=== PATIENT | male | born 1950 | race Caucasian/White ===

== ENCOUNTER 2017-03-26 12:59 | Observation (INO) ==
[2017-03-26] MEDS ORDERED: Aspirin 81 MG TAB.CHEW PO ONE (13:22)
[2017-03-26] MEDS ORDERED: Nitroglycerin 0.4 MG TAB.SUBL SL ONE (13:29)
--- NOTE | 2017-03-26 13:32 | Emergency Department Note ---
Disposition Clinical Impression: Chest pain Qualifiers: Chest pain type: unspecified Qualified Code(s): R07.9 - Chest pain, unspecified Disposition: Admitted As Inpatient Condition: Fair Time of Disposition: 14:22 Chest Pain HPI - General Chief Complaint: ED Chest Pain Stated Complaint: CP x4days,randa x1 week Time Seen by Provider: 03/26/17 13:29 Source: patient Limitations: no limitations Vital Signs Reviewed: Yes Nursing Notes Reviewed: Yes - History of Present Illness HPI Narrative: 66-year-old male with history of CAD, past Was July 2015 presents with chest pain for 4 days. Chest pain at rest, causing nausea dizziness and shortness of breath. Patient states that he had pain 8 out of 10, crampy aching pain like pressure. Nonexertional. a few hours prior to arrival, at worse an 8 out of 10 in the last 4 days, sudden onset 4 days ago before that he had no pain. 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 Hernandez was also concerned that he may possibly have pericarditis from an odontogenic source, he sent him in and evaluated him a week ago. He reports shortness of breath. Patient denies productive cough, recent fevers or chills, denies vomiting, diarrhea, constipation, weight changes, hematuria, hemoptysis, hematochezia Pt complaint: chest pain Onset (ago): day(s) (4) Duration: intermittent Onset: during rest, during exertion Pain Location: substernal, left chest Severity: moderate Severity scale (1-10): 9 Quality: aching Improves with: nothing Worsens with: nothing Associated symptoms: Reports: nausea. Denies: vomiting, diaphoresis, dyspnea Treatments prior to arrival chest pain: none - Related Data Home Medications Medication Instructions Recorded Confirmed Aspirin [Adult Low Dose Aspirin EC] 81 mg PO DAILY 08/08/15 03/26/17 Atorvastatin [Lipitor] 40 mg PO HS 08/08/15 03/26/17 Cyanocobalamin (Vitamin B-12) 1,000 mcg SL DAILY 08/08/15 03/26/17 [Vitamin B-12] Docusate [Colace] 100 mg PO DAILY 08/08/15 03/26/17 Gabapentin [Neurontin] 100 mg PO TID 08/08/15 03/26/17 HYDROcodone/Acet 7.5/325 mg [[place] 1 tab PO TID 08/08/15 03/26/17 7.5-325 mg] Hydrocortisone [Cortef] 10 mg PO HS 08/08/15 03/26/17 Hydrocortisone [Cortef] 20 mg PO QAM 08/08/15 03/26/17 Magnesium 250 mg PO TID 08/08/15 03/26/17 Trazodone HCl [TraZODone] 50 mg PO HS 08/08/15 03/26/17 Vitamin E (Dl,Tocopheryl Acet) 400 unit PO DAILY 08/08/15 03/26/17 [Vitamin E] diazePAM [Valium] 5 mg PO BID 08/08/15 03/26/17 traMADol [Ultram] 50 mg PO Q4H 08/08/15 03/26/17 Azithromycin [Azithromycin 6-Tab 250 mg PO PER PKG DI 03/26/17 03/26/17 Pack] Metoprolol [Lopressor] 50 mg PO BID 03/26/17 03/26/17 Prazosin HCl [Minipress] 2 mg PO DAILY 03/26/17 03/26/17 Allergies Allergy/AdvReac Type Severity Reaction Status Date / Time glycerin AdvReac Hives Verified 08/08/15 06:50 phenol AdvReac Hives Verified 08/08/15 06:50 Sulfa (Sulfonamide AdvReac Nausea Verified 08/08/15 06:50 Antibiotics) All systems ED: reviewed and negative except as stated. Review of Systems: As Per HPI Constitutional: Denies: fever, chills ENT ED: Denies: ear pain Cardiovascular: Reports: as per HPI, chest pain, dyspnea on exertion. Denies: palpitations Respiratory: Denies: cough, dyspnea Gastrointestinal: Denies: abdominal pain, nausea, vomiting Genitourinary: Denies: urgency Musculoskeletal: Denies: back pain, neck pain Integumentary: Denies: rash Neurological: Denies: headache, weakness Psychiatric: Denies: anxiety Chest Pain PMH - Past Medical History Medical history: Reports: hyperlipidemia, hypertension, myocardial infarction Psychiatric history: Reports: anxiety, depression - Social History Smoking Status: Former smoker Alcohol use: Reports: none Drug use: Reports: none Physical Exam Constitutional: NAD, vital signs reviewed and wnl Eyes: PERRLA, sclera anicteric ENT & Mouth: dry MM, edentuluous, small area of induration to left lower mandibular gumline no abscess no uvular deviation Neck: normal inspection, neck is supple Resp: CTA bilaterally, no resp distress CV: RRR, no m/g/r GI: normal inspection, soft, no guarding or rigidity Back: normal inspection, no tenderness to palpation Neuro: A&O3, CNII-XII grossly intact, [place] Skin: on limited exam, skin intact with no rashes or lesions - General Limitations: no limitations General appearance: alert Course Course Narrative: 66-year-old male with history of urinary artery disease presents with chest pain nonexertional for last few days, concern for unstable angina versus angina EKG with no ischemic changes or troponin chest x-ray cardiac workup aspirin and nitroglycerin trial plan to admit to medicine heart score of 5 - Reevaluation(s) Reevaluation #1: Patient was evaluated in the ED, no troponin elevation, EKG with no ischemic changes, nonspecific repolarization, admitted to medicine service doctor capillary, and Toradol for pain as the patient states that it does not feel like NTG is helping anymore, he stated it helped at first not chest pain feels different. Vital Signs Temperature 98.6 F 03/26/17 13:02 Pulse Rate 63 03/26/17 13:02 Respiratory Rate 18 03/26/17 13:02 Blood Pressure 172/120 03/26/17 13:02 O2 Sat by Pulse Oximetry 96 03/26/17 13:02 Temperature 98.6 F 03/26/17 13:02 Pulse Rate 66 03/26/17 14:32 Respiratory Rate 15 03/26/17 15:20 Blood Pressure 132/88 03/26/17 15:20 O2 Sat by Pulse Oximetry 97 03/26/17 14:32 Oxygen Delivery Oxygen Delivery Room Air Chest Pain - [facility] Narrative Medical decision making narrative: 66-year-old male with chest pain history of CAD admitted to hospital service in stable condition. - Differential Diagnosis Likely: stable angina, unstable angina pectoris, atypical chest pain, chest pain - Medical Records Medical records reviewed: Yes I reviewed the patient's medical records. - Lab Data Lab results reviewed: Yes I reviewed the patient's lab results. Result diagrams: 03/26/17 13:39 03/26/17 13:39 Lab Results 03/26/17 03/26/17 03/26/17 Range/Units 13:39 13:39 13:39 WBC 6.7 (4.3-11.1) K/mcL RBC 4.25 (4.19-5.50) M/mcL Hgb 13.0 (12.9-16.9) g/dL Hct 37.8 (37.5-50.1) % MCV 88.9 (83.0-100.0) fL MCH 30.6 (28.0-33.3) pg MCHC 34.4 (31.6-35.5) g/dL RDW 12.5 (11.5-14.5) % Plt Count 160 (140-400) K/mcL MPV 9.9 (9.4-12.4) fL Immature Gran % 0.3 (0-4) % Seg Neutrophils % 79.8 % Lymphocytes % 13.6 % Monocytes % 4.6 % Eosinophils % 1.3 % Basophils % 0.4 % Neutrophils # 5.3 (1.6-8.9) K/mcL Lymphocytes # 0.9 (0.6-4.6) K/mcL Monocytes # 0.3 (0.0-1.3) K/mcL Eosinophils # 0.1 (0.0-0.6) K/mcL Basophils # 0.0 (0.0-0.2) K/mcL Sodium 141 (136-145) mEq/L Potassium 4.1 (3.5-4.5) mEq/L Chloride 108 (98-109) mEq/L Carbon Dioxide 26 (19-29) mEq/L BUN 15 (8-26) mg/dL Creatinine 0.97 (0.72-1.25) mg/dL Est GFR ( Amer) > 60 (> 60) Est GFR (Non-Af Amer) > 60 (> 60) BUN/Creatinine Ratio 15 (6-26) Glucose 122 H (70-99) mg/dL Calculated Osmolality 294 (280-300) Calcium 9.1 (8.6-10.8) mg/dL Troponin I (0-0.03) ng/mL B-Natriuretic Peptide 46 (0-100) pg/mL 03/26/17 Range/Units 13:39 WBC (4.3-11.1) K/mcL RBC (4.19-5.50) M/mcL Hgb (12.9-16.9) g/dL Hct (37.5-50.1) % MCV (83.0-100.0) fL MCH (28.0-33.3) pg MCHC (31.6-35.5) g/dL RDW (11.5-14.5) % Plt Count (140-400) K/mcL MPV (9.4-12.4) fL Immature Gran % (0-4) % Seg Neutrophils % % Lymphocytes % % Monocytes % % Eosinophils % % Basophils % % Neutrophils # (1.6-8.9) K/mcL Lymphocytes # (0.6-4.6) K/mcL Monocytes # (0.0-1.3) K/mcL Eosinophils # (0.0-0.6) K/mcL Basophils # (0.0-0.2) K/mcL Sodium (136-145) mEq/L Potassium (3.5-4.5) mEq/L Chloride (98-109) mEq/L Carbon Dioxide (19-29) mEq/L BUN (8-26) mg/dL Creatinine (0.72-1.25) mg/dL Est GFR ( Amer) (> 60) Est GFR (Non-Af Amer) (> 60) BUN/Creatinine Ratio (6-26) Glucose (70-99) mg/dL Calculated Osmolality (280-300) Calcium (8.6-10.8) mg/dL Troponin I 0.00 (0-0.03) ng/mL B-Natriuretic Peptide (0-100) pg/mL - Radiology Data Radiology results reviewed: Yes I reviewed the patient's radiology results. Chest X-Ray 03/26/17 13:22 IMPRESSION: No acute cardiopulmonary disease. D/ / Young Alexis MD / Young Alexis MD Interpreting Provider: Young Alexis MD - EKG Data EKG attestation: Yes I reviewed and interpreted this EKG. EKG shows normal: sinus rhythm Rate: normal (57 bpm NJ 151 QRS 91 QTC 372 early repolarization nonspecific T- wave abnormalities no ST segment elevations or depressions.) T wave inversions noted in: aVL Interpretation: unchanged when compared to prior tracing (date), nonspecific ST- T wave changes, other (Repeat EKG performed at 1404 shows similar early re-pole no evidence of ST segment elevations or depressions, ) - Core Measures AMI Core Measures Followed: Yes Heart Score - Score History: Moderately Suspicious EKG: Non Specific repolarisation Disturbance Age: 45-65 Risk Factors: Equal/Greater than 3 risk factor or history of atherosclerotic disease Troponin: Less than normal limit HEART Score Total: 5 Attestation Statement - Attestation Attestation: I examined this patient and my medical decision-making was reviewed with the Resident Physician. I agree with the documented findings, disposition and treatment plan as described except to the extent set forth below. In summary 66 -year-old male with typical chest pain symptoms. Nitroglycerin and aspirin. Low risk for pulmonary embolism. Plan to admit for further evaluation given risk factors as well as heart score greater than 3.
[2017-03-26 13:50] LABS: Basophils % 0.4 %; Eosinophils # 0.1 K/mcL (0.0-0.6); Eosinophils % 1.3 %; Hematocrit 37.8 % (37.5-50.1); Immature Granulocytes % 0.3 % (0-4); Lymphocytes # 0.9 K/mcL (0.6-4.6); Lymphocytes % 13.6 %; Mean Corpuscular HGB Conc 34.4 g/dL (31.6-35.5); Mean Corpuscular Hemoglobin 30.6 pg (28.0-33.3); Mean Corpuscular Volume 88.9 fL (83.0-100.0); Mean Platelet Volume 9.9 fL (9.4-12.4); Monocytes # 0.3 K/mcL (0.0-1.3); Monocytes % 4.6 %; Neutrophils # 5.3 K/mcL (1.6-8.9); Platelet Count 160 K/mcL (140-400); Red Blood Count 4.25 M/mcL (4.19-5.50); Red Cell Distribution Width 12.5 % (11.5-14.5); Segmented Neutrophils % 79.8 %
[2017-03-26 14:02] LABS: BUN/Creatinine Ratio 15 (6-26); Blood Urea Nitrogen 15 mg/dL (8-26); Calcium 9.1 mg/dL (8.6-10.8); Carbon Dioxide 26 mEq/L (19-29); Chloride 108 mEq/L (98-109); Glucose 122 mg/dL (70-99); Osmolality,Calculated 294 (280-300); Potassium 4.1 mEq/L (3.5-4.5); Sodium 141 mEq/L (136-145); eGFR For African Americans > 60 (> 60); eGFR For Non-African Americans > 60 (> 60)
[2017-03-26] MEDS ORDERED: Ketorolac 15 MG/ML VIAL IVP ONE (14:53)
[2017-03-26] MEDS ORDERED: Naloxone 0.4 MG/ML INJ IVP PRN (16:31)
--- NOTE | 2017-03-26 16:40 | Internal Med History&Physical ---
Date of Encounter: 03/26/17 Time of Encounter: 16:38 Assessment and Plan (1) Chest pain Current visit: Yes Status: Acute Patient is reporting a 3 week history of chest pain with a four-day history of increasing chest pain, dyspnea and nausea. Chest pain appears to be unstable angina as it is present both rest and exertion and relieved by cessation of activity. Chest x-ray in the emergency department shows no acute cardiopulmonary process. Troponin is -0.00. CBC and metabolic panel unremarkable. EKG exhibits only sinus bradycardia. He is being admitted for further workup and evaluation Continuous telemetry, continuous SPO2 monitoring, oxygen therapy when necessary titrate to maintain SPO2 greater than 92% Every 4 hours vitals Cardiac diet, nothing by mouth after midnight Resume home medications OF aspirin, Lipitor, vitamin B12, Colace, Cortef, Valium , tramadol, prazosin, and Z-Kamaljit for 24 more hours to finish 5 day dose. Hold beta joseph for now as patient has had symptomatic bradycardia. Start hydralazine 10 mg IV push every 6 hours when necessary for SBP greater than 160, consider holding if patient tachycardic. Stress test in the a.m. Qualifiers: Ischemic chest pain type: unstable angina pectoris Qualified Code(s): I20.0 - Unstable angina (2) Hypertension Current visit: Yes Status: Acute Patient has chronic hypertension. Most recent BP at 1600 159/77. This is likely due to holding his beta joseph dose due to some dramatic bradycardia. We will start hydralazine 10 mg IV push every 6 hours when necessary for systolic blood pressure greater than 160. Consider resuming beta joseph dose when appropriate Qualifiers: Hypertension type: essential hypertension Qualified Code(s): I10 - Essential (primary) hypertension (3) Dental abscess Current visit: Yes Status: Acute Has a three-month history of dental abscess to which he has been on a Z-Kamaljit 2 and an additional antibiotic to which he is unsure of. His most recently been placed on his second dose of A Z-Kamaljit to which he should finish tomorrow. Continue Z-Kamaljit until tomorrow and then discontinue. Assessment oral cavity did not reveal gross oral inflammation, (4) DVT prophylaxis Current visit: Yes Status: Acute Patient is at risk for DVT due to hospital stay and prolonged immobility. We will place patient on Lovenox 40 mg subcutaneous QD. Internal Medicine - H&P: HPI Chief complaint: CP with dyspnea Admitted From: Home Plans for Post Hospital Care: Home History of present illness: Mr. Mosquera is a 66 year old male with a past medical history of CAD with AR without stents, last AR 2014. A. fib with ablation in , adrenal insufficiency , fibromyalgia. Presented to [facility] with chest pain, dyspnea, nausea. All information obtained from chart review and patient report. Patient reports having ongoing chest discomfort 3 weeks with discomfort getting progressively worse within the last 4 days. This morning he noticed chest pain was becoming more intolerable, and that he was experiencing dyspnea and nausea as well. The CP is described as 8/10, pressure with belt like radiation to the back. The pain was continuous upon arrival to the ED but has decreased in intensity since the administration of sublingual nitro and Torodol. Denies chest pain worsening with activity or subsiding with rest. Reports that he has not tried taking anything to help alleviate the pain. EKG in the ED reveals sinus bradycardia. Troponin were negative at 0.00, CBC and metabolic panel were unremarkable, chest x-ray unremarkable. Additionally, he reports that he has had a tooth abcess for the last 3-months for which he has taken 2 rounds of a z- pack and an additional ATB to which he cannot remember. He mentions that he was having some chest discomfort, weakness, and fatigue so he saw Dr. Hernandez. He mentions that Dr. Hernandez informed him that their is a risk for pericarditis d/t the abcess and new cardiac symptoms. However, his oral cavity did not appear infectious upon the visit. He is being admitted to [facility] for further workup and evaluation. Past Med Surg Social Fam HX - Past Medical History Medical history: hyperlipidemia, hypertension, myocardial infarction Psychiatric history: anxiety, depression - Social History Smoking Status: Former smoker Smokeless Tobacco Status: No Alcohol use: none Drug use: none - Family History Father Family Member Ethnicity: Non- Living Status: Hx Family Cardiac Disorders: Yes (CAD) Hx Family Cancer: Yes Mother Race: Family Member Ethnicity: Non- Living Status: Cause of : CANCER Hx Family Cancer: Yes Internal Medicine - H&P: Meds Aspirin [Adult Low Dose Aspirin EC] 81 mg PO DAILY 08/08/15 [History] Atorvastatin [Lipitor] 40 mg PO HS 08/08/15 [History] Cyanocobalamin (Vitamin B-12) [Vitamin B-12] 1,000 mcg SL DAILY 08/08/15 [ History] Docusate [Colace] 100 mg PO DAILY 08/08/15 [History] Gabapentin [Neurontin] 100 mg PO TID 08/08/15 [History] HYDROcodone/Acet 7.5/325 mg [[place] 7.5-325 mg] 1 tab PO TID 08/08/15 [History] Hydrocortisone [Cortef] 10 mg PO HS 08/08/15 [History] Hydrocortisone [Cortef] 20 mg PO QAM 08/08/15 [History] Magnesium 250 mg PO TID 08/08/15 [History] Trazodone HCl [TraZODone] 50 mg PO HS 08/08/15 [History] Vitamin E (Dl,Tocopheryl Acet) [Vitamin E] 400 unit PO DAILY 08/08/15 [History] diazePAM [Valium] 5 mg PO BID 08/08/15 [History] traMADol [Ultram] 50 mg PO Q4H 08/08/15 [History] Azithromycin [Azithromycin 6-Tab Pack] 250 mg PO PER PKG DI 03/26/17 [History] Metoprolol [Lopressor] 50 mg PO BID 03/26/17 [History] Prazosin HCl [Minipress] 2 mg PO DAILY 03/26/17 [History] 3 Allergy/AdvReac Type Severity Reaction Status Date / Time glycerin AdvReac Hives Verified 08/08/15 06:50 phenol AdvReac Hives Verified 08/08/15 06:50 Sulfa (Sulfonamide AdvReac Nausea Verified 08/08/15 06:50 Antibiotics) All Systems PM: A 10-system review of systems was performed and is negative for pertinent findings except as documented above in the HPI. - Constitutional Constitutional: excessive sweating (Ongoing for the last 3 weeks), fatigue ( Ongoing for the last 3 weeks), no chills, no fever(s), no night sweats, no weakness - EENT Eyes: no change in vision, no discharge, no pain, no photophobia Ears: no ear discharge, no ear pain, no tinnitus Nose, mouth and throat: no dysphagia, no nasal discharge, no neck pain, no sore throat - Cardiovascular Cardiovascular ROS IM: chest pain (Ongoing for the last 3 weeks, getting progressively worse over the last 4 days), dyspnea (Dyspnea upon rest and exertion), lightheadedness (Activity), no diaphoresis, no edema, no palpitations , no syncope - Respiratory Respiratory: cough (Intermittent cough is productive of a thin small amount of white sputum ongoing for the last 3 weeks), no dyspnea, no wheezing, no pain on inspiration, no chest congestion, no excessive phlegm production, no pain with cough - Gastrointestinal Gastrointestinal: no abdominal pain, no change in bowel habits, no diarrhea, no hematemesis, no hematochezia, no melena, no nausea, no vomiting - Genitourinary Genitourinary ROS male: no dysuria, no flank pain - Musculoskeletal Musculoskeletal ROS IM: no numbness, no tingling - Integumentary Integumentary IM: no rash, no unusual bruising - Neurological Neurological ROS: no confusion, no convulsions, no disequilibrium, no dizziness , no focal weakness, no headache(s), no numbness, no tingling, no tremor(s) - Hematologic/Lymphatic Hematologic/Lymphatic: no easy bruising - Constitutional Vitals: Temp Pulse Resp BP Pulse Ox 98.0 F 68 15 159/77 94 03/26/17 16:02 03/26/17 16:02 03/26/17 16:02 03/26/17 16:02 03/26/17 16:02 General appearance: Present: cooperative, A&O X 3, no acute distress, answers questions appropriately - Head Head exam: Present: atraumatic, normocephalic - Eye Eye exam: Present: PERRL, conjuntiva pink, sclera anicteric Pupils: Present: PERRL - Neck Neck exam general surgery: Present: supple, trachea midline. Absent: lymphadenopathy - Respiratory Respiratory exam: Present: CTAB. Absent: accessory muscle use, rales, rhonchi, wheezes - Cardiovascular Cardiovascular exam: Present: bradycardia, irregular rhythm, RRR, +S1, +S2. Absent: diastolic murmur, gallop, rubs, systolic murmur - GI/Abdominal GI/Abdominal exam: Present: normal bowel sounds, soft, no peritoneal signs. Absent: distended, tenderness - Extremities Exam Extremities exam: Present: warm, radial pulses palpable and symmetrical. Absent : calf tenderness, cyanotic, pedal edema - Neurological Exam Neurological exam: Present: CN II-XII intact, oriented X3, no focal deficits. Absent: pronater drift, facial droop, speech deficit - Skin Skin exam: Present: dry, intact Internal Med - H&P Results - Labs CBC & Chem 7: 03/26/17 13:39 03/26/17 13:39 - EKG Data Prior EKG available for review: yes When compared to previous EKG: there is no significant change EKG comments: 03/26/17 16:52 Sinus bradycardia with an irregular rhythm and intermittent supraventricular premature complexes. - Diagnostic Studies Chest x-ray Additional comments: No acute cardiopulmonary process
[2017-03-26] MEDS ORDERED: Azithromycin 250 MG TABLET PO SCH (17:00)
[2017-03-26] MEDS: traMADol 50 MG TABLET PO SCH ×2 (17:11→21:57)
[2017-03-26] MEDS: Hydrocortisone 10 MG TABLET PO SCH (21:57)
[2017-03-26] MEDS: diazePAM 5 MG TABLET PO SCH (21:58)
[2017-03-26] MEDS: Gabapentin 100 MG CAPSULE PO SCH (21:58)
[2017-03-26] MEDS: traZODone 50 MG TABLET PO SCH (22:09)
[2017-03-27] MEDS: traMADol 50 MG TABLET PO SCH ×3 (02:04→20:18)
[2017-03-27 02:05] LABS: Basophils % 0.6 %; Eosinophils # 0.2 K/mcL (0.0-0.6); Eosinophils % 2.9 %; Hematocrit 34.5 % (37.5-50.1); Hemoglobin 12.1 g/dL (12.9-16.9); Immature Granulocytes % 0.3 % (0-4); Lymphocytes # 2.6 K/mcL (0.6-4.6); Lymphocytes % 40.4 %; Mean Corpuscular HGB Conc 35.1 g/dL (31.6-35.5); Mean Corpuscular Hemoglobin 31.6 pg (28.0-33.3); Mean Corpuscular Volume 90.1 fL (83.0-100.0); Mean Platelet Volume 10.5 fL (9.4-12.4); Monocytes # 0.6 K/mcL (0.0-1.3); Monocytes % 9.5 %; Platelet Count 140 K/mcL (140-400); Red Blood Count 3.83 M/mcL (4.19-5.50); Red Cell Distribution Width 12.5 % (11.5-14.5); Segmented Neutrophils % 46.3 %
[2017-03-27 02:16] LABS: BUN/Creatinine Ratio 17 (6-26); Blood Urea Nitrogen 18 mg/dL (8-26); Calcium 8.6 mg/dL (8.6-10.8); Carbon Dioxide 28 mEq/L (19-29); Chloride 108 mEq/L (98-109); Glucose 126 mg/dL (70-99); Osmolality,Calculated 297 (280-300); eGFR For African Americans > 60 (> 60); eGFR For Non-African Americans > 60 (> 60)
[2017-03-27 02:17] LABS: Sodium 142 mEq/L (136-145)
[2017-03-27] MEDS: *HR* Enoxaparin 40 MG/0.4 ML SYRINGE SQ SCH ×2 (06:07→06:19)
[2017-03-27] MEDS ORDERED: Regadenoson 0.4 MG/5 ML SYRINGE IVP ONE (06:19)
[2017-03-27] MEDS ORDERED: *HR* LORazepam 2 MG/ML VIAL IVP ONE (08:20)
--- NOTE | 2017-03-27 11:42 | Nuclear Medicine Stress Report ---
Regadenoson Nuclear Stress Name: Anton Mosquera Date of Study: 03/27/2017 Date: 1950 Ht: 72.0 in Medical Record#: [id number] Age: 66 Wt: 209.0 lb Gender: Male Order #: [id number] Location: [facility] Room: [facility] Supervising Provider: Cyndy Melendrez CNP Reading Physician: Eagle Villalpando DO, FAC, [facility] Ordering Physician: Bria Hermosillo CNP Primary Care Physician: None Stress Technologist: Jessica Dennis, [employer] Manager Chinese: Jamin Muller Indications: Chest Pain Impression: Pharmacologic stress ECG is negative for ischemia at level of heart rate achieved. Gated EF = 70%. Perfusion imaging was negative for ischemia or infarct. History: Hypertension Hypercholesteremia Stress Test Summary: Stress Test Type: Pharmacologic Regadenoson 0.4mg/5ml given IV Baseline Information: Initial Heart Rate: 58 Blood Pressure: 154/88 Stress Information: Test Terminated Due to (primary): As per protocol Maximum Blood Pressure: 130/68 Maximum Heart Rate: 82 Percent Maximum Heart Rate Achieved: 53 Double Product: [id number] METS Reached: 1 Symptoms: No chest symptoms Nuclear Summary: SPECT myocardial perfusion imaging using Tc99m Sestamibi given intravenously was performed at rest and following cardiac stress testing. The resting images were obtained following initial dose of 10.9 mCi. Following stress an additional dose of 35.5 mCi was given at peak exercise or 30 seconds post regadenoson infusion. Medication Given: Time Medication Dose Units Route Findings: Stress Note * Resting ECG demonstrated normal sinus rhythm. * No baseline arrhythmias were noted. * Pharmacologic stress ECG is negative for ischemia at level of heart rate achieved. * No arrhythmias were noted during stress. * Patient had no chest pain during stress. Hemodynamic responses * Normal hemodynamic responses to pharmacologic stress. Study Quality * Study quality is good. Gated EF % * Gated EF = 70%. Left Ventricle * LVEDV = 145 mL. * The left ventricle is dilated. NORMALS * Normal wall motion. * Normal segmental perfusion in rest. * Normal segmental perfusion in stress. TID * No evidence of transient ischemic dilatation. TID ratio * TID ratio = 1.09. Lung Uptake * There is no evidence of increase lung uptake. Updated by Eagle Villalpando DO, PETE, BRENDA, LIZETH on 03/27/2017 11:33:14 AM electronically signed on 03/27/2017 11:34:48 AM with status of Final
[2017-03-27] MEDS: traMADol 50 MG TABLET PO PRN ×2 (12:05→19:29)
[2017-03-27] MEDS: diazePAM 5 MG TABLET PO SCH ×2 (12:06→22:22)
[2017-03-27] MEDS: Aspirin Enteric Coated 81 MG Tablet PO SCH (12:06)
[2017-03-27] MEDS: Magnesium Oxide 400 MG TABLET PO SCH (12:06)
[2017-03-27] MEDS: Cyanocobalamin (B-12) 1,000 MCG TABLET PO SCH (12:06)
[2017-03-27] MEDS: Cholecalciferol (D-3) 1,000 UNIT TABLET PO SCH (12:06)
[2017-03-27] MEDS: Hydrocortisone 10 MG TABLET PO SCH ×2 (12:07→19:31)
[2017-03-27] MEDS: Gabapentin 100 MG CAPSULE PO SCH ×3 (12:08→22:22)
--- NOTE | 2017-03-27 14:59 | Electrocardiograph Report ---
[place] [address] Test Date: 2017-03-26 Pat Name: Anton Moqsuera Department: 102 Room: 3B Gender: Senior [employer] [address] Sql Developer: : 1950 Requested By: Jayce Riggs Order Number: [id number] Reading MD: Ariane Acuna Measurements Intervals [place] Rate: 56 P: 90 TN: 156 QRS: 8 QRSD: 93 T: 70 QT: 381 QTc: 373 Interpretive Statements SINUS BRADYCARDIA WITH OCCASIONAL SUPRAVENTRICULAR PREMATURE COMPLEXES NONSPECIFIC T-WAVE ABNORMALITY Electronically Signed On 03-27-2017 14:57:47 EDT by Ariane Acuna
--- NOTE | 2017-03-27 14:59 | Electrocardiograph Report ---
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
--- NOTE | 2017-03-27 19:29 | Internal Med Progress Note ---
Date of Encounter: 03/27/17 Time of Encounter: 17:00 - Assessment and plan (1) Chest pain Current Visit: Yes Status: Acute Assessment and plan: Patient currently denies chest pain but continues to endorse dyspnea and worsening dyspnea on exertion. Cardiac etiology has been ruled out at this time. Troponins negative. Echocardiogram unremarkable with ejection fraction of 60-65%. Stress test negative for ischemia or infarct. Chest x-ray negative. Patient stating he had occupational exposure to harsh chemicals back in the and states that he had a lot of lesions and scarring on his lungs. We will obtain a chest CT to evaluate further. He is tolerating room air however he continues to be dyspneic above his norm. He is former tobacco abuse. Will treat with bronchodilators and assess his response. On examination , he does not have any increased work of breathing but his breath sounds are slightly decreased with few, scattered coarse breath sounds present. Awaiting chest CT. ITS Impressions Chest X-Ray 03/26/17 13:22 IMPRESSION: No acute cardiopulmonary disease. D/ / Young Alexis MD / Young Alexis MD Interpreting Provider: Young Alexis MD Echocardiogram Date of Study: 03/27/2017 Impressions: LVEF 60-65%. Normal LV chamber size and function. Mild concentric left ventricular hypertrophy. Normal right ventricular structure and function. No evidence of pulmonary hypertension. No significant valvular dysfunction. Regadenoson Nuclear Stress Date of Study: 03/27/2017 Impression: Pharmacologic stress ECG is negative for ischemia at level of heart rate achieved. Gated EF = 70%. Perfusion imaging was negative for ischemia or infarct. Qualifiers: Ischemic chest pain type: unstable angina pectoris Qualified Code(s): I20.0 - Unstable angina (2) Dyspnea Current Visit: Yes Status: Acute Assessment and plan: See prior note for chest pain Qualifiers: Dyspnea type: unspecified Qualified Code(s): R06.00 - Dyspnea, unspecified (3) Anxiety about health Current Visit: Yes Status: Chronic Assessment and plan: Patient stating that because he had chemical exposure back in the early that he is extremely sensitive to any type of smell i.e. at the gas station, if somebody walks by him that smoking, etc. He states he goes into an immediate panic attack during the situations. He is requesting for IV lorazepam as he states that he has never felt better after taking it. In further discussion with him, he states that his primary care provider had him on diazepam for many years but has recently taken him off it. I will defer to his primary care provider for chronic management of his chronic anxiety. (4) History of chemical exposure Current Visit: Yes Status: Chronic Assessment and plan: Patient stating as a worker at [employer]that he was exposed to several chemicals back in the early . He states that he has a lot of lesions on his long and has had a lot of further sequelae as a result of this exposure-chest x-ray was negative, will obtain chest CT to evaluate as a possible contributing factor to his dyspnea given that cardiac etiology is less likely. (5) Trigeminal neuralgia Current Visit: Yes Status: Suspected Assessment and plan: On examination, there is no evidence of a dental abscess. Given his symptoms, his examination is highly consistent with trigeminal neuralgia. Will initiate carbamazepine and evaluate his response. (6) Dental abscess Current Visit: Yes Status: Acute Assessment and plan: Patient stating he has failed outpatient therapy with 3 different antibiotics. See prior note for trigeminal neuralgia. Echocardiogram was performed which ruled out pericarditis. (7) Hypertension Current Visit: Yes Status: Chronic Assessment and plan: Uncontrolled although the patient is quite anxious at this time which could be a contributing factor. Patient is on metoprolol 50 mg twice a day at home. Will address his anxiety and monitor. Qualifiers: Hypertension type: essential hypertension Qualified Code(s): I10 - Essential (primary) hypertension (8) DVT prophylaxis Current Visit: Yes Status: Acute Assessment and plan: Subcutaneous Lovenox - Subjective Interval history: Patient seen and examined. On examination, patient ambulatory around his room. Patient denies chest pain. He continues to endorse dyspnea and is concerned that prior chemical exposure in the as a causative factor of his current dyspnea. He states he is eating well. - Constitutional Vitals: Temp Pulse Resp BP Pulse Ox 98.0 F 73 12 156/83 96 03/27/17 18:42 03/27/17 18:42 03/27/17 18:42 03/27/17 18:42 03/27/17 18:42 General appearance: Present: cooperative, A&O X 3, pleasant, no acute distress, answers questions appropriately - Head Head exam: Present: atraumatic, normocephalic - Eye Eye exam: Present: PERRL, conjuntiva pink, sclera anicteric Pupils: Present: PERRL - Neck Neck exam general surgery: Present: supple, trachea midline. Absent: lymphadenopathy - Respiratory Respiratory exam: Present: decreased breath sounds, rhonchi. Absent: accessory muscle use, rales, respiratory distress, wheezes - Cardiovascular Cardiovascular exam: Present: RRR, +S1, +S2. Absent: diastolic murmur, gallop, rubs, systolic murmur - GI/Abdominal GI/Abdominal exam: Present: normal bowel sounds, soft, no peritoneal signs. Absent: distended, tenderness - Extremities Exam Extremities exam: Present: warm, radial pulses palpable and symmetrical. Absent : calf tenderness, cyanotic, pedal edema - Neurological Exam Neurological exam: Present: alert, CN II-XII intact, normal gait, oriented X3, no focal deficits, strengths equal and symetr throughout. Absent: pronater drift, facial droop, speech deficit - Skin Skin exam: Present: dry, intact, normal color, warm Internal Medicine: Result - Labs CBC & Chem 7: 03/27/17 01:36 03/27/17 01:36 Labs: Short CBC 03/27/17 Range/Units 01:36 WBC 6.5 (4.3-11.1) K/mcL Hgb 12.1 L (12.9-16.9) g/dL Hct 34.5 L (37.5-50.1) % Plt Count 140 (140-400) K/mcL Neutrophils # 3.0 (1.6-8.9) K/mcL BMP 03/27/17 01:36 Sodium 142 Potassium 4.0 Chloride 108 Carbon Dioxide 28 BUN 18 Creatinine 1.05 Glucose 126 H Calcium 8.6 Cardiac Enzymes 03/26/17 03/27/17 Range/Units 19:11 01:36 Troponin I 0.00 0.00 (0-0.03) ng/mL Consult Discharge Plan - Plan Referrals: NONE,PCP [Primary Care Provider] -
[2017-03-27] MEDS: Albuterol 2.5 MG/3 ML NEBULIZER IH SCH ×2 (20:03→23:10)
[2017-03-27] MEDS ORDERED: *HR* HYDROcodone/Acet 7.5/325 mg TABLET PO PRN (20:04)
[2017-03-27] MEDS: traZODone 50 MG TABLET PO SCH (22:21)
[2017-03-27] MEDS: carBAMazepine 200 MG TABLET PO SCH (22:22)
[2017-03-28] MEDS: Albuterol 2.5 MG/3 ML NEBULIZER IH SCH ×3 (03:39→11:07)
[2017-03-28] MEDS: *HR* Enoxaparin 40 MG/0.4 ML SYRINGE SQ SCH (05:51)
[2017-03-28] MEDS: traMADol 50 MG TABLET PO SCH (06:40)
[2017-03-28 06:50] VITALS: BP 136/79
[2017-03-28] MEDS: Hydrocortisone 10 MG TABLET PO SCH (08:55)
[2017-03-28] MEDS: Aspirin Enteric Coated 81 MG Tablet PO SCH (08:55)
[2017-03-28] MEDS: Cyanocobalamin (B-12) 1,000 MCG TABLET PO SCH (08:56)
[2017-03-28] MEDS: diazePAM 5 MG TABLET PO SCH (08:56)
[2017-03-28] MEDS: Cholecalciferol (D-3) 1,000 UNIT TABLET PO SCH (08:56)
[2017-03-28] MEDS: Magnesium Oxide 400 MG TABLET PO SCH (08:56)
[2017-03-28] MEDS: Gabapentin 100 MG CAPSULE PO SCH (08:56)
[2017-03-28] MEDS: carBAMazepine 200 MG TABLET PO SCH (08:56)
--- NOTE | 2017-03-28 13:04 | Discharge Summary ---
Date of Encounter: 03/28/17 Time of Encounter: 10:30 - Discharge Diagnosis (1) Chest pain Priority: Primary Status: Ruled-out Comments: Acute coronary syndrome was ruled out. Troponins negative. Echocardiogram unremarkable. Stress test negative. Chest x-ray negative. Chest CT unremarkable for acute processes. Symptoms highly consistent with panic attacks. Qualifiers: Ischemic chest pain type: unstable angina pectoris Qualified Code(s): I20.0 - Unstable angina (2) Dyspnea Priority: Primary Status: Ruled-out Qualifiers: Dyspnea type: unspecified Qualified Code(s): R06.00 - Dyspnea, unspecified (3) Anxiety about health Priority: Secondary Status: Chronic (4) History of chemical exposure Priority: Secondary Status: Chronic (5) Trigeminal neuralgia Priority: Primary Status: Suspected Comments: On physical examination, his examination is consistent with trigeminal neuralgia rather than an abscessed tooth which could explain why the 3 rounds of antibiotics thus far have been ineffective. He was started on Tegretol and his pain abated. We will send home with that. Follow-up outpatient (6) Dental abscess Priority: Primary Status: Suspected Comments: Unlikely active at this time (7) Hypertension Priority: Secondary Status: Chronic Comments: Hypertensive at times while admitted however the patient was noted to be pacing around his room in the unit throughout this admission and he readily endorsed uncontrolled anxiety and continually asked for more lorazepam. Of note, his primary care provider recently weaned him off diazepam that he been on since 1992. Follow-up outpatient Qualifiers: Hypertension type: essential hypertension Qualified Code(s): I10 - Essential (primary) hypertension (8) DVT prophylaxis Priority: Primary Status: Acute Comments: Subcutaneous Lovenox while admitted - Discharge Medications Prescriptions: carBAMazepine [Tegretol] 200 mg PO BID #60 tab Home Medications: Aspirin [Adult Low Dose Aspirin EC] 81 mg PO DAILY 08/08/15 [History] Atorvastatin [Lipitor] 40 mg PO HS 08/08/15 [History] Cyanocobalamin (Vitamin B-12) [Vitamin B-12] 1,000 mcg SL DAILY 08/08/15 [ History] Docusate [Colace] 100 mg PO DAILY 08/08/15 [History] Gabapentin [Neurontin] 100 mg PO TID 08/08/15 [History] HYDROcodone/Acet 7.5/325 mg [[place] 7.5-325 mg] 1 tab PO TID 08/08/15 [History] Hydrocortisone [Cortef] 10 mg PO HS 08/08/15 [History] Hydrocortisone [Cortef] 20 mg PO QAM 08/08/15 [History] Magnesium 250 mg PO TID 08/08/15 [History] Trazodone HCl [TraZODone] 50 mg PO HS 08/08/15 [History] Vitamin E (Dl,Tocopheryl Acet) [Vitamin E] 400 unit PO DAILY 08/08/15 [History] diazePAM [Valium] 5 mg PO BID 08/08/15 [History] traMADol [Ultram] 50 mg PO Q4H 08/08/15 [History] Prazosin HCl [Minipress] 2 mg PO DAILY 03/26/17 [History] carBAMazepine [Tegretol] 200 mg PO BID #60 tab 03/28/17 [Rx] Allergies/Adverse Reactions: 3 Allergy/AdvReac Type Severity Reaction Status Date / Time glycerin AdvReac Hives Verified 08/08/15 06:50 phenol AdvReac Hives Verified 08/08/15 06:50 Sulfa (Sulfonamide AdvReac Nausea Verified 08/08/15 06:50 Antibiotics) Procedures/tests Complete & Pending: Procedures Performed prior 72 hours Category Date Time Status CT chest wo con [CT] Routine Cat Scan 03/27/17 19:31 Completed NM breanne perf SPECT multi [NM] Routine Exams 03/26/17 18:49 Taken EV echocardiogram Routine Y 03/27/17 08:28 Completed SP pharm nuclear stress Routine Y 03/27/17 07:00 Completed Date of admission: 03/26/17 14:43 Primary care physician: PCP NONE Discharging clinician: Bria Hermosillo Anticipated date of discharge: 03/28/17 - Patient Status Disposition: Home, Self-Care Condition: Fair Functional capacity at discharge: independent ambulation Overall status at discharge: patient is back to baseline - Discharge Instructions Follow Up With: Garcia Lewis [Other] Additional Instructions: Follow-up with your primary care provider Dr. Lewis at [facility] on Saturday as scheduled - Diet and Activity Activity: increase activity as tolerated Diet: low fat, low cholesterol, low salt diet Hospital course: Mr. Mosquera is a 66 year old male with past medical history of CAD s/p AMI, atrial fibrillation s/p ablation in 2003, adrenal insufficiency, fibromyalgia, hyperlipidemia, hypertension, former chemical exposure in the early while at work. Patient presented to the emergency department chief complaint chest pain, dyspnea, and nausea. Patient stating he been having ongoing chest discomfort for 3 weeks prior to presentation and had gotten progressively worse on the 4 days prior to presentation. Patient sitting on the morning of presentation that he noticed chest pain was becoming more intolerable and his dyspnea and nausea had worsened as well. Patient stating the chest pain radiated to his back and was continuous but decreased in intensity after given sublingual nitroglycerin and Toradol in the emergency department. Patient denies worsening of chest pain with activity or any alleviation with rest. Workup in the emergency department unremarkable. ECG revealing sinus bradycardia. Chest x-ray negative. Of note, he recently saw his origination specialist who took him off his beta joseph for ongoing bradycardia. Of note, patient has also been treated for suspected dental abscess for the past 3 months and he is on his third round of antibiotics. He was admitted to the hospitalist service for further evaluation and management. On examination, no abscess was noted but his examination was highly consistent with trigeminal neuralgia on the left side. He was treated with carbamazepine and his facial symptoms and pain resolved almost immediately. Patient had an echocardiogram to rule out pericarditis. Echocardiogram was unremarkable with ejection fraction of 60-65% . Troponins were negative. Patient had a stress test that was negative for ischemia or infarct. Acute coronary syndrome was ruled out. Patient was on room air throughout this entire admission. He was also ambulatory around his room and around the unit. Yet he continued to endorse dyspnea and a lot of anxiety. He was given a one-time dose of IV lorazepam and his symptoms resolved completely. He was no longer dyspneic or anxious. Of note, patient stating his primary care provider had recently taken him off his diazepam that he had been taking since the early . Patient was continually asking for more prescriptions for benzos he was instructed that he would have to go through his primary care provider. I did check his [place] report which found current prescriptions for gabapentin, Vicodin 7.5 mg 3 times a day, tramadol. He has not had a prescription for diazepam since October of this year. I informed him that I would not be writing for benzos and that his primary care provider and/or his primary psychiatrist would have to write for these medications. Patient stating his doctor has tried hydroxyzine but he states that whenever he takes this that he "knocks me out." Patient's symptoms were highly consistent with panic attacks. Patient stating that he was exposed to chemicals in the early s while at work and he states as a result of this that every time he smells anything out of the ordinary including cigarette smoke, gasoline smell, strong perfumes, he states that he then is comes extremely anxious and is unable to breathe. I did obtain a chest CT because the patient stated that his lungs were heavily scarred and had lesions on them from the alleged chemical exposure. Chest CT however was essentially unremarkable with very minimal scarring noted. Patient also stating that he saw all he refers to as an industrial doctor approximately 15 years ago. This doctor allegedly told him that because of his chemical exposure that he was going to have several issues regarding his health. Patient stating he has "every single one of the issues that he said I would have." Symptoms are highly consistent with uncontrolled [id number] outpatient. He was discharged home in stable condition with close outpatient follow-up recommended. He was also sent with a prescription for carbamazepine and instructed to follow-up outpatient. ITS Impressions Chest X-Ray 03/26/17 13:22 IMPRESSION: No acute cardiopulmonary disease. D/ / Young Alexis MD / Young Alexis MD Interpreting Provider: Young Alexis MD Echocardiogram Date of Study: 03/27/2017 Impressions: LVEF 60-65%. Normal LV chamber size and function. Mild concentric left ventricular hypertrophy. Normal right ventricular structure and function. No evidence of pulmonary hypertension. No significant valvular dysfunction. Regadenoson Nuclear Stress Date of Study: 03/27/2017 Impression: Pharmacologic stress ECG is negative for ischemia at level of heart rate achieved. Gated EF = 70%. Perfusion imaging was negative for ischemia or infarct. - Time Spent with Patient Total time spent providing and/or coordinating discharge services: - Constitutional Vitals: Temp Pulse Resp BP Pulse Ox 98.2 F 57 15 136/79 97 03/28/17 06:49 03/28/17 06:49 03/28/17 06:49 03/28/17 06:49 03/28/17 06:49 General appearance: Present: cooperative, A&O X 3, pleasant, no acute distress, answers questions appropriately - Head Head exam: Present: atraumatic, normocephalic - Eye Eye exam: Present: PERRL, conjuntiva pink, sclera anicteric Pupils: Present: PERRL - Neck Neck exam general surgery: Present: supple, trachea midline. Absent: lymphadenopathy - Respiratory Respiratory exam: Present: CTAB. Absent: accessory muscle use, rales, respiratory distress, rhonchi, wheezes - Cardiovascular Cardiovascular exam: Present: RRR, +S1, +S2. Absent: diastolic murmur, gallop, rubs, systolic murmur - GI/Abdominal GI/Abdominal exam: Present: normal bowel sounds, soft, no peritoneal signs. Absent: distended, tenderness - Extremities Exam Extremities exam: Present: warm, radial pulses palpable and symmetrical. Absent : calf tenderness, cyanotic, pedal edema - Neurological Exam Neurological exam: Present: alert, CN II-XII intact, normal gait, oriented X3, no focal deficits, strengths equal and symetr throughout. Absent: pronater drift, facial droop, speech deficit - Skin Skin exam: Present: dry, intact, normal color, warm
== END 2017-03-28 15:34 | disposition home or self-care (01) ==
LOC: EMEROO 12:59 → 3BNU 12:59
PROVIDERS: ADMIT Internal Medicine; ATTEND Nurse Practitioner Family